=== PATIENT | female | born 1955 | race Caucasian/White ===

== ENCOUNTER 2018-01-18 09:18 | Emergency (ER) | payer MEDICAID, SELFPAY ==
[2018-01-18 09:22] VITALS: BP 154/78; PULSE 72; RESP 16; TEMP 36.9; O2SAT 98; BMI 55.2
--- NOTE | 2018-01-18 09:44 | ED.VISSUMM ---
- ER Visit Summary Date of Service: 01/18/18 Chief Complaint: [] Chronic left arm neck pain History of Present Illness: The patient is a 62 F [] of chronic left neck and arm pain she indicates she has been worked up extensively by the [facility] with imaging studies etc. she is told she is a pinched nerve involving her neck she is scheduled to see a neck specialist through [facility] in a pain management individual but that is not until mid January, she also has fibromyalgia bipolar disorder, she is taking Lyrica for the pain she is followed through [facility] she explained to them that her pain was not being well controlled by Lyrica and she was sent to the emergency department. She has had no change in her pain syndrome. She takes a finger and draws across her left neck down to the mid arm does not really radiate to the hand she has no loss of function on paresthesias no trauma and again no change in her chronic pain, her review of systems otherwise negative Physical Examination: [] Woman in no distress her vital signs are normal again she takes indicates location of the pain as above it stops at about the mid arm laterally her HEENT exam is unremarkable the neck is not tender her lungs are diminished the heart tones are distant the abdomen is very obese and soft nontender upper lower extremities unremarkable, left upper extremity she has normal pulse cap refill sensation she has full flexion-extension of all digits thumb function is normal wrist function elbow function shoulder function normal she has slight decreased forward elevation with the shoulder because of pain there is no instability deformity no trauma to the shoulder there is no neurologic or vascular deficits appreciated on physical exam Test Results: [] Emergency Department Course and Treatment: [] Long conversation with her we reviewed everything she assures me this is not new just Lyrica is not helping she has appointment scheduled for weeks from now and she cannot wait. At this time she will be treated with Toradol IM Tylenol 3 as rescue medicine but have explained her she must contact her primary care physicians and received pain management through those offices as the emergency department cannot assume her pain management based on current regulations she understands and will do so Treatment Plan: [] Disposition: [] Stable home Impression: [] Acute recurrent left arm,pain, cervical radiculopathy This note was generated with Revalesioation software. It may contain incorrect words, spelling, and punctuation that were not noted in review of the chart prior to signing ED Disposition - Plan for ED Patient: Chief Complaint: Other, Pain/Inj Referrals: Prince Gotti MD [Primary Care Provider] -
--- NOTE | 2018-01-18 09:47 | ED.DCSUM_ITS ---
- ER Visit Summary Date of Service: 01/18/18 Chief Complaint: [] Chronic left arm neck pain History of Present Illness: The patient is a 62 F [] of chronic left neck and arm pain she indicates she has been worked up extensively by the [facility] with imaging studies etc. she is told she is a pinched nerve involving her neck she is scheduled to see a neck specialist through [facility] in a pain management individual but that is not until mid January, she also has fibromyalgia bipolar disorder, she is taking Lyrica for the pain she is followed through [facility] she explained to them that her pain was not being well controlled by Lyrica and she was sent to the emergency department. She has had no change in her pain syndrome. She takes a finger and draws across her left neck down to the mid arm does not really radiate to the hand she has no loss of function on paresthesias no trauma and again no change in her chronic pain, her review of systems otherwise negative Physical Examination: [] Woman in no distress her vital signs are normal again she takes indicates location of the pain as above it stops at about the mid arm laterally her HEENT exam is unremarkable the neck is not tender her lungs are diminished the heart tones are distant the abdomen is very obese and soft nontender upper lower extremities unremarkable, left upper extremity she has normal pulse cap refill sensation she has full flexion-extension of all digits thumb function is normal wrist function elbow function shoulder function normal she has slight decreased forward elevation with the shoulder because of pain there is no instability deformity no trauma to the shoulder there is no neurologic or vascular deficits appreciated on physical exam Test Results: [] Emergency Department Course and Treatment: [] Long conversation with her we reviewed everything she assures me this is not new just Lyrica is not helping she has appointment scheduled for weeks from now and she cannot wait. At this time she will be treated with Toradol IM Tylenol 3 as rescue medicine but have explained her she must contact her primary care physicians and received pain management through those offices as the emergency department cannot assume her pain management based on current regulations she understands and will do so Treatment Plan: [] Disposition: [] Stable home Impression: [] Acute recurrent left arm,pain, cervical radiculopathy This note was generated with SpeakUpation software. It may contain incorrect words, spelling, and punctuation that were not noted in review of the chart prior to signing ED Disposition - Plan for ED Patient: Chief Complaint: Other, Pain/Inj Referrals: Prince Gotti MD [Primary Care Provider] -
--- NOTE | 2018-01-18 09:47 | ED.DEP ---
ED Disposition - Plan for ED Patient: Chief Complaint: Other, Pain/Inj Prescriptions: Acetaminophen/Codeine #3 [Tylenol#3] 1 tab PO Q6H PRN PRN #20 tab PRN Reason: Pain Referrals: Prince Gotti MD [Primary Care Provider] -
--- NOTE | 2018-01-18 09:49 | ED.DEP ---
ED Disposition - Plan for ED Patient: Chief Complaint: Other, Pain/Inj Instructions: ED Chronic Pain Management, ED Cervical Radiculopathy Prescriptions: Acetaminophen/Codeine #3 [Tylenol#3] 1 tab PO Q6H PRN PRN #20 tab PRN Reason: Pain Referrals: Prince Gotti MD [Primary Care Provider] -
[2018-01-18] MEDS: Ketorolac 60 MG/2 ML Vial IM (09:58)
[2018-01-18 10:32] VITALS: BP 147/91; PULSE 83; RESP 16; O2SAT 99
== END 2018-01-18 10:34 | disposition home or self-care (01) ==
LOC: ED 09:59
PROVIDERS: Emergency Provider Emergency Medicine; Family Provider Family Medicine; PCP Family Medicine
DX: M79.602 Pain in left arm (principal); M54.12 Radiculopathy, cervical region; M79.7 Fibromyalgia; F31.9 Bipolar disorder, unspecified; Z79.899 Other long term (current) drug therapy
CPT/HCPCS: 96372; 99282

== ENCOUNTER 2019-06-03 09:08 | Day surgery (SDC) | payer MEDICAID, SELFPAY ==
[2019-06-03 09:32] VITALS: BP 131/80; PULSE 85; RESP 16; TEMP 36.8; O2SAT 96; BMI 119.7
[2019-06-03] MEDS: Bupivacaine 0.25% 30 ML Vial (10:09)
[2019-06-03] MEDS: MethylPREDNISolone Acetate 80 MG/ML Vial (10:09)
--- NOTE | 2019-06-03 10:10 | RAD_ITS ---
PROCEDURE: Caudal block. DATE OF EXAMINATION: June 03, 2019 INDICATION: Female, 64 years old. Chronic back pain. FLUOROSCOPY TIME (if supplied): (0:12) minutes/seconds. 2 intraoperative images were obtained. Intraoperative images provided for caudal block. The spinal needle is seen along the posterior midportion of the sacrum. RAD/Fluor Guidance for Spine Inj IMPRESSION: Intraoperative imaging provided for caudal block. Electronically Signed: Peña Woodall, at 15:54 EDT , Service support ,
[2019-06-03 10:18] VITALS: BP 116/71; BP 131/80; PULSE 87; RESP 16; TEMP 36.2; O2SAT 97
[2019-06-03 10:20] VITALS: BP 116/71; BP 131/80; PULSE 85; RESP 16; O2SAT 97
[2019-06-03 10:25] VITALS: BP 125/68; BP 131/80; PULSE 85; RESP 16; O2SAT 95
[2019-06-03 10:26] LABS: Bedside Glucose 137 mg/dL (70-110)
[2019-06-03 10:27] VITALS: BP 120/67; BP 131/80; PULSE 84; RESP 16; TEMP 36.1; O2SAT 96
[2019-06-03 11:00] VITALS: BP 131/80
--- NOTE | 2019-06-03 17:36 | OP.PCM_ITS ---
Problem List (1) Degeneration of lumbar or lumbosacral intervertebral disc Status: Chronic (2) Radiculopathy of lumbosacral region Status: Chronic Report of Operation Date of Procedure: 06/03/19 Pre-Operative Diagnosis: Lumbosacral radiculopathy, lumbar degenerative disc disease, lumbar sacral spinal stenosis Post-Operative Diagnosis: Sacral radiculopathy, lumbar sacral degenerative disc disease, lumbosacral spinal stenosis Surgery/Procedure Performed:: Diagnostic/therapeutic caudal epidural steroid injection Description of Surgical Findings:: PROCEDURE: Diagnostic/therapeutic caudal epidural steroid injection PREOPERATIVE DIAGNOSIS: Lumbosacral radiculopathy, lumbosacral degenerative disc disease, lumbosacral spinal stenosis POSTOPERATIVE DIAGNOSIS: Lumbosacral radiculopathy, lumbosacral degenerative disc disease, lumbosacral spinal stenosis ANESTHESIA: MAC COMPLICATIONS: None BLOOD LOSS: Minimal PROCEDURE IN DETAIL: History and physical today was reviewed. Risks and benefits of the procedure were explained. The patient understood, agreed to our procedure, and informed consent was obtained. IV inserted per routine protocol. The patient was taken to the operating room, placed in a prone position with a pillow positioned underneath the abdomen. The lower back area was prepped and draped in a sterile fashion using iodine x3 under fluoroscopy guidance on the lateral view the caudal space was identified the skin and subcutaneous tissue and size approximately 3 cc of 1% lidocaine using a 25-gauge regular needle under direct visualization fluoroscopy using a 22-gauge 3-1/2 inch spinal needle the needle was advanced via the skin through the sacral hiatus tip of the needle passed through the sacrococcygeal ligament a dvanced approximately S4 area after negative aspiration for blood or CSF a total of 3 cc of contrast were injected to confirm correct placement of the needle as well as cephalad spread the spread was followed to approximately L5 area after negative aspiration for blood or CSF and confirmation AP as well as lateral view a total of 15 cc of preservative-free 0.125% Marcaine with 80 mg of Depo-Medrol were injected easily. The needles were then removed intact. The patient experienced no signs or symptoms intrathecal, intravascular injection. The patient experienced no paraesthesia. The procedure was completed without any apparent difficult, any complication. The patient appeared to tolerate well. ASSESSMENT AND PLAN: This is a 64-year-old female with lumbosacral radiculopathy, lumbosacral trip disc disease, lumbar sacral spinal stenosis status post diagnostic/therapeutic caudal epidural steroid injection. The patient will continue her current medications. The patient will follow in approximately 2 weeks for possible reevaluation.
== END 2019-06-03 11:08 | disposition home or self-care (01) ==
LOC: SDC 09:09 → AC 09:14
PROVIDERS: Family Provider Family Medicine; PCP Family Medicine; Referring Provider Anesthesiology Pain Medicine; Visit Provider Anesthesiology Pain Medicine
PROC: 3E0S3BZ Introduction of Anesthetic Agent into Epidural Space, Percutaneous Approach (ICD-10-PCS; CPT 62282; principal; 2019-06-03 10:05)
DX: M51.16 Intervertebral disc disorders with radiculopathy, lumbar region (principal); M48.061 Spinal stenosis, lumbar region without neurogenic claudication; I25.2 Old myocardial infarction; I10 Essential (primary) hypertension; J44.9 Chronic obstructive pulmonary disease, unspecified; E78.00 Pure hypercholesterolemia, unspecified; F41.9 Anxiety disorder, unspecified; F32.9 Major depressive disorder, single episode, unspecified; E05.00 Thyrotoxicosis with diffuse goiter without thyrotoxic crisis or storm; E11.40 Type 2 diabetes mellitus with diabetic neuropathy, unspecified; G47.33 Obstructive sleep apnea (adult) (pediatric); M79.7 Fibromyalgia; K21.9 Gastro-esophageal reflux disease without esophagitis; Z79.899 Other long term (current) drug therapy; Z79.82 Long term (current) use of aspirin; Z79.84 Long term (current) use of oral hypoglycemic drugs; Z86.718 Personal history of other venous thrombosis and embolism; Z87.891 Personal history of nicotine dependence; Z79.891 Long term (current) use of opiate analgesic
CPT/HCPCS: 62323; 64483; 77003; 82962; J7120; J3490

== ENCOUNTER 2019-07-15 07:57 | Day surgery (SDC) | payer MEDICAID, SELFPAY ==
[2019-07-15 08:23] VITALS: BP 117/66; PULSE 79; RESP 16; TEMP 36.5; O2SAT 98; BMI 54.3
[2019-07-15] MEDS: Lactated Ringers 1,000 ML 100 ML IV (08:31)
--- NOTE | 2019-07-15 09:00 | RAD_ITS ---
PROCEDURE: L3-L5 right lumbar transforaminal block. DATE OF EXAMINATION: July 15, 2019. INDICATION: Female, 64 years old. Back pain. FLUOROSCOPY TIME (if supplied): (0:28) minutes/seconds. 2 images were obtained. Intraoperative imaging provided for right L3 L5 transforaminal block. RAD/Lumbar Spine 2 or 3 Views IMPRESSION: Intraoperative imaging provided for right L3-L5 transforaminal block. Electronically Signed: Peña Woodall, at 15:37 EDT , Service support ,
[2019-07-15 09:05] LABS: Bedside Glucose 112 mg/dL (70-110)
[2019-07-15] MEDS: MethylPREDNISolone Acetate 80 MG/ML Vial (09:37)
[2019-07-15 09:47] VITALS: BP 117/66; BP 155/84; PULSE 80; RESP 16; TEMP 36.1; O2SAT 95
[2019-07-15 09:50] VITALS: BP 117/66; BP 142/95; PULSE 83; RESP 16; O2SAT 96
[2019-07-15 09:55] VITALS: BP 117/66; BP 130/81; PULSE 84; RESP 16; O2SAT 96
[2019-07-15 10:00] VITALS: BP 117/66; BP 126/82; PULSE 81; RESP 16; TEMP 36.1; O2SAT 95
[2019-07-15 10:49] VITALS: BP 117/66
--- NOTE | 2019-07-15 13:38 | PCM.OPRPT ---
Problem List (1) Degeneration of lumbar or lumbosacral intervertebral disc Status: Chronic (2) Radiculopathy of lumbosacral region Status: Chronic Report of Operation Date of Procedure: 07/15/19 Description of Surgical Findings:: PREOPERATIVE DIAGNOSES: 1. Lumbosacral radiculopathy. 2. Lumbosacral degenerative disk disease. 3. Lumbosacral spinal stenosis. POSTOPERATIVE DIAGNOSES: 1. Lumbosacral radiculopathy. 2. Lumbosacral degenerative disk disease. 3. Lumbosacral spinal stenosis. PROCEDURE PERFORMED: Right-sided lumbar transforaminal epidural steroid injection, L3-4 and L4-5. ANESTHESIA: MAC. BLOOD LOSS: Minimal. COMPLICATIONS: None. DESCRIPTION OF PROCEDURE: History and physical of today was reviewed. Risks and benefits of the procedure were explained. The patient understood and agreed to proceed. Informed consent was obtained. IV inserted per routine protocol. The patient was taken to the operating room and placed in the prone position with a pillow positioned underneath the abdomen. The left side of his lower back was prepped and draped in a sterile fashion using iodine x3. Under fluoroscopy guidance on oblique view, the L3 through L5 vertebral bodies were visualized. The skin and subcutaneous tissue was anesthetized with approximately 5 mL of 1% lidocaine using a 25-gauge regular needle. Under direct visualization with fluoroscopy at approximately 35-degree angle, starting on the right L3, ending on the right L5, using a 22-gauge 5-inch spinal needle, the needle was advanced via the skin. The tip of the needle was maneuvered and directed towards the inferior and medial gutter of the transverse process at the superiormost aspect of the neural foramen. Once the tip of the needle was at the vicinity of the foramen, after negative aspiration for blood or CSF, a total of 1 mL of contrast was injected in divided doses between both levels to confirm correct placement of the needle as well as medial spread. The confirmation was obtained on AP as well as lateral view. After repeated negative aspiration and confirmation on AP as well as lateral view, a total of 6 mL of preservative-free 0.25% Marcaine with 80 mg of Depo-Medrol was injected in divided doses between both levels. The needles were then removed intact. The patient experienced no sign or symptoms of intrathecal or intravascular injection. The patient experienced no paresthesia. The procedure was completed without any apparent difficulty or any complications. The patient appeared to tolerate it well. ASSESSMENT AND PLAN: This is a 64-year-old female with lumbosacral radiculopathy, lumbosacral degenerative disk disease, and lumbosacral spinal stenosis, status post right-sided lumbar transforaminal epidural steroid injection at L3-4 and L4-5. The patient will continue her current medications. The patient will follow up in approximately 2 weeks for reevaluation.
== END 2019-07-15 10:50 | disposition home or self-care (01) ==
LOC: SDC 07:58 → AC 08:01
PROVIDERS: Family Provider Family Medicine; PCP Family Medicine; Referring Provider Anesthesiology Pain Medicine; Visit Provider Anesthesiology Pain Medicine
PROC: 3E0S3BZ Introduction of Anesthetic Agent into Epidural Space, Percutaneous Approach (ICD-10-PCS; CPT 64483; principal; 2019-07-15 09:55)
DX: M51.17 Intervertebral disc disorders with radiculopathy, lumbosacral region (principal); M47.27 Other spondylosis with radiculopathy, lumbosacral region; M48.07 Spinal stenosis, lumbosacral region; E66.9 Obesity, unspecified; Z68.43 Body mass index [BMI] 50.0-59.9, adult; E05.00 Thyrotoxicosis with diffuse goiter without thyrotoxic crisis or storm; I10 Essential (primary) hypertension; I25.2 Old myocardial infarction; E11.40 Type 2 diabetes mellitus with diabetic neuropathy, unspecified; K21.9 Gastro-esophageal reflux disease without esophagitis; M79.7 Fibromyalgia; J44.9 Chronic obstructive pulmonary disease, unspecified; G43.909 Migraine, unspecified, not intractable, without status migrainosus; G47.33 Obstructive sleep apnea (adult) (pediatric); G25.81 Restless legs syndrome; F41.9 Anxiety disorder, unspecified; F32.9 Major depressive disorder, single episode, unspecified; M06.9 Rheumatoid arthritis, unspecified; Z78.0 Asymptomatic menopausal state; Z86.718 Personal history of other venous thrombosis and embolism; Z86.73 Personal history of transient ischemic attack (TIA), and cerebral infarction without residual deficits; Z87.11 Personal history of peptic ulcer disease; Z79.82 Long term (current) use of aspirin; Z79.891 Long term (current) use of opiate analgesic; Z79.899 Other long term (current) drug therapy; Z87.891 Personal history of nicotine dependence
CPT/HCPCS: 64483; 64484 ×2; 72100; 82962; J7120; J3490

== ENCOUNTER 2019-09-30 07:16 | Day surgery (SDC) | payer MEDICAID, SELFPAY ==
[2019-09-30] VITALS (7 sets, daily range): BP systolic 107–133; BP diastolic 67–89; PULSE 77–79; RESP 16; TEMP 36.2–36.6; O2SAT 94–97; BMI 53.1
[2019-09-30] MEDS: Lactated Ringers 1,000 ML 100 ML IV (08:00)
[2019-09-30 08:06] LABS: Bedside Glucose 129 mg/dL (70-110)
--- NOTE | 2019-09-30 08:11 | RAD_ITS ---
STUDY: X-RAY - LUMBAR SPINE REASON FOR EXAM: Female, 64 years old. Right L3-S1 facet joint injection. TECHNIQUE: 4 intraoperative view(s) of the lumbar spine were obtained. COMPARISON: None FINDINGS: Intraoperative fluoroscopic services provided for right L3-S1 facet joint injection. RAD/L/S Spine Min 4 Views IMPRESSION: Intraoperative fluoroscopic services were provided for right-sided L3-S1 facet joint injection. Electronically Signed: Peña Woodall, at 11:20 EST , Service support ,
[2019-09-30] MEDS: Bupivacaine 0.25% 30 ML Vial (08:17)
[2019-09-30] MEDS: MethylPREDNISolone Acetate 80 MG/ML Vial (08:17)
--- NOTE | 2019-09-30 08:58 | OP.PCM_ITS ---
Report of Operation Date of Procedure: 09/30/19 Description of Surgical Findings:: PROCEDURE: Right-sided lumbar facet steroid injection L3, L4, L5, S1 PREOPERATIVE DIAGNOSIS: Lumbosacral spondylosis, lumbosacral degenerative disc disease, and lumbar facet arthropathy POSTOPERATIVE DIAGNOSIS: Lumbosacral spondylosis, lumbosacral degenerative disc disease, and lumbar facet arthropathy ANESTHESIA: MAC COMPLICATIONS: None BLOOD LOSS: Minimal PROCEDURE IN DETAIL: History and physical today was reviewed. Risks and benefits of the procedure were explained. The patient understood, agreed to our procedure, and informed consent was obtained. IV inserted per routine protocol. The patient was taken to the operating room, placed in a prone position with a pillow positioned underneath the abdomen. The right side of his lower back was prepped and draped in a sterile fashion using iodine x3. Under fluoroscopy guidance, on AP view, L3 through S1 vertebral bodies were visualized. Skin and subcutaneous tissues were anesthetized with approximately 5 mL of 1% lidocaine using a 25-gauge regular needle. Under direct visualization with fluoroscopy at approximately 25-degree angle, starting on the right L3, ending on the right S1, passing through the L4-L5 using a 22-gauge 5-inch spinal needle, the needle was advanced via the skin. The tip of the needle was maneuvered and directed towards the superior and medial gutter of the transverse process at the vicinity of the medial branch. Once the tip of the needle was in contact with the bone, the needle pulled approximately 2 mm off the bone. After negative aspiration of blood with CSF and confirmation of AP as well as oblique view, a total of 8 mL of preservative-free 0.25% Marcaine with 80 mg of Depo- Medrol was injection in divided doses between those 4 levels. The needles were then removed intact. The patient experienced no signs or symptoms intrathecal, intravascular injection. The patient experienced no paraesthesia. The procedure was completed without any apparent difficult, any complication. The patient appeared to tolerate well. ASSESSMENT AND PLAN: This is a 64-year-old Female with Lumbosacral spondylosis, lumbosacral degenerative disc disease, and lumbar facet arthropathy, status post right-sided lumbar facet steroid injection L3 through S1. The patient will continue her current medications. The patient will follow in approximately 2 weeks for reevaluation.
== END 2019-09-30 09:23 | disposition home or self-care (01) ==
LOC: SDC 07:16 → AC 07:18
PROVIDERS: Family Provider Family Medicine; PCP Family Medicine; Referring Provider Anesthesiology Pain Medicine; Visit Provider Anesthesiology Pain Medicine
PROC: 3E0T3BZ Introduction of Anesthetic Agent into Peripheral Nerves and Plexi, Percutaneous Approach (ICD-10-PCS; CPT 64483; principal; 2019-09-30 07:55)
DX: M47.27 Other spondylosis with radiculopathy, lumbosacral region (principal); M51.17 Intervertebral disc disorders with radiculopathy, lumbosacral region; M46.96 Unspecified inflammatory spondylopathy, lumbar region; I10 Essential (primary) hypertension; J44.9 Chronic obstructive pulmonary disease, unspecified; G47.33 Obstructive sleep apnea (adult) (pediatric); G43.909 Migraine, unspecified, not intractable, without status migrainosus; G25.81 Restless legs syndrome; K21.9 Gastro-esophageal reflux disease without esophagitis; E78.00 Pure hypercholesterolemia, unspecified; E11.40 Type 2 diabetes mellitus with diabetic neuropathy, unspecified; F32.9 Major depressive disorder, single episode, unspecified; F41.9 Anxiety disorder, unspecified; M79.7 Fibromyalgia; M06.9 Rheumatoid arthritis, unspecified; E06.9 Thyroiditis, unspecified; I25.2 Old myocardial infarction; Z78.0 Asymptomatic menopausal state; Z86.73 Personal history of transient ischemic attack (TIA), and cerebral infarction without residual deficits; Z87.19 Personal history of other diseases of the digestive system; Z86.718 Personal history of other venous thrombosis and embolism; Z79.82 Long term (current) use of aspirin; Z79.84 Long term (current) use of oral hypoglycemic drugs; Z79.891 Long term (current) use of opiate analgesic; Z79.899 Other long term (current) drug therapy; Z87.891 Personal history of nicotine dependence
CPT/HCPCS: 01992; 64483; 64484 ×2; 72100; 72110; 82962; J7120

== ENCOUNTER → 2019-12-05 14:19 | Outpatient (CLI) | payer MEDICAID, SELFPAY ==
[2019-12-05 14:18] VITALS: BMI 53.1
[2019-12-05 14:40] LABS: Absolute Lymphocyte Count 2.05 X10^3/uL (0.83-4.51); Basophil# 0.05 X10^3/uL; Basophil% 0.7 % (0-1); Eosinophil# 0.17 X10^3/uL; Eosinophils% 2.5 % (0-5); Hematocrit 45.4 % (37-47); Hemoglobin 14.8 g/dL (12.0-15.0); Lymphocyte # 2.05 X10^3/ul (4.0); Lymphocyte % 30.2 % (19-41); Mean Corp Hgb Conc 32.6 g/dL (32-36); Mean Corpuscular Hgb 28.9 pg (27.0-32.0); Mean Corpuscular Volume 88.7 fL (81-99); Mean Platelet Vol. 9.5 fl (6.2-12.0); Monocyte# 0.51 X10^3/uL; Monocyte% 7.5 % (0-10); NRBC Flagged by Analyzer 0 % (0-5); Neutrophil # 3.97 X10^3/uL (2.7-7.7); Neutrophil % 58.7 % (47-70); Platelet Count 204 K/mm3 (150-450); RBC Distribution Width CV 13.1 % (11.6-14.6); RBC Distribution Width SD 42.6 fl (35.1-43.9); Red Blood Count 5.12 M/mm3 (4.2-5.4); White Blood Count 6.8 K/mm3 (4.4-11.0)
[2019-12-05 14:56] LABS: ALB/GLOB Ratio 0.9 RATIO (0.9-2.4); AST(SGOT) 30 U/L (15-37); Alanine Aminotransfer ALT/SGPT 49 U/L (13-56); Alkaline Phosphatase 70 U/L (45-117); Anion Gap 5 (5-15); BUN 11 mg/dL (7-18); BUN/Creat Ratio 13.7 RATIO (10-20); Calcium,Total 9.6 mg/dL (8.5-10.1); Chloride 104 mmol/L (98-107); EST Glomerular Filtration Rate 77 mL/min (>60); Est Glom Filt Rate - Afr Amer 93 mL/min (>60); Globulin 4.3 g/dL (2.2-4.2); Glucose 90 mg/dL (74-106); Lipase 120 U/L (73-393); Potassium 4.4 mmol/L (3.5-5.1); Protein, Total 8.3 g/dL (6.4-8.2); Sodium Level 136 mmol/L (136-145)
== END ==
PROVIDERS: PCP Family Medicine; Referring Provider Surgery; Visit Provider Surgery
DX: R10.11 Right upper quadrant pain (principal)
CPT/HCPCS: 36415; 80053; 83690; 85025

== ENCOUNTER 2019-12-20 08:08 | Day surgery (SDC) | payer MEDICAID, SELFPAY ==
[2019-12-05 14:18] VITALS: BMI 53.1
--- NOTE | 2019-12-09 11:25 | HP_ITS ---
Intake Vital Signs 12/05/19 BMI 53.1 12/05/19 Height 5 ft 4 in 12/05/19 Weight: 311 lb 12/05/19 Respiration 18 Intake Visit Reasons: Esophagogastroduodenoscopy [place] [employer] [employer] [facility] Required: No Is patient in pain?: Yes (right abdomen) Pain scale (1-10): 10 Allergies adhesive tape Allergy (Verified 09/30/19 07:35) Rash fluticasone [From Advair Diskus] Adverse Reaction (Verified 09/30/19 07:35) Other salmeterol [From Advair Diskus] Adverse Reaction (Verified 09/30/19 07:35) Other tetracycline Adverse Reaction (Verified 09/30/19 07:35) Upset Stomach Medications Albuterol Inhaler [Ventolin Hfa (SP)] 2 puff INHALATION Q4H PRN PRN 05/30/19 [History Confirmed 12/05/19] Amitriptyline HCl [Elavil] 25 mg PO QHS 05/30/19 [History Confirmed 09/30/19] Aspirin [Aspir-Low] 81 mg PO DAILY 05/30/19 [History Confirmed 12/05/19] Atorvastatin Calcium [Lipitor] 10 mg PO QHS 05/30/19 [History Confirmed 12/05/19] Baclofen 10 mg PO BID 05/30/19 [History Confirmed 12/05/19] Budesonide/Formoterol 160/4.5 [Symbicort 160/4.5 Mcg Inhaler (SP)] 2 puff INHALATION BID 05/30/19 [History Confirmed 12/05/19] Calcium (Elemental) [Os-Chandler 500] 500 mg PO DAILY 05/30/19 [History Confirmed 12/05/19] Cetirizine HCl 10 mg PO DAILY 05/30/19 [History Confirmed 12/05/19] Cholecalciferol (Vitamin D3) [Vitamin D3] 2,000 unit PO DAILY 05/30/19 [History Confirmed 12/05/19] Diltiazem HCl [Diltiazem ER] 180 mg PO DAILY 05/30/19 [History Confirmed 12/05/19] Furosemide [Lasix] 40 mg PO DAILY 05/30/19 [History Confirmed 12/05/19] Hydroxyzine HCl 50 mg PO TID 05/30/19 [History Confirmed 12/05/19] Levothyroxine Sodium 300 mcg PO DAILY 05/30/19 [History Confirmed 12/05/19] Lisinopril [Zestril] 5 mg PO DAILY 05/30/19 [History Confirmed 12/05/19] Meloxicam [Mobic] 15 mg PO DAILY 05/30/19 [History Confirmed 12/05/19] Metformin HCl [Glucophage] 500 mg PO BID 05/30/19 [History Confirmed 12/05/19] Montelukast [Singulair] 10 mg PO DAILY 05/30/19 [History Confirmed 12/05/19] Multivitamin [Daily Multiple Vitamin] 1 ea PO DAILY 05/30/19 [History Confirmed 12/05/19] Potassium Chloride [K-Tab ER] 20 meq PO DAILY 05/30/19 [History Confirmed 12/05/19] Topiramate [Topamax] 50 mg PO QHS 05/30/19 [History Confirmed 12/05/19] amitriptyline 25 mg tablet 25 mg PO DAILY 12/05/19 [History Confirmed 12/05/19] fluocinonide 0.05 % topical ointment 1 applic TOPICAL BID 12/05/19 [History Confirmed 12/05/19] ketoconazole 2 % shampoo 1 applic TOPICAL 2XW 12/05/19 [History Confirmed 12/05/19] omeprazole 20 mg capsule,delayed release 20 mg PO BID cap 12/05/19 [History Confirmed 12/05/19] pregabalin 150 mg capsule 150 mg PO DAILY 12/05/19 [History Confirmed 12/05/19] sucralfate 1 gram tablet 1 g PO QACHS #120 tab 12/05/19 [Rx Confirmed 12/05/19] [facility] Medical History Abdominal pain, other specified site (Acute) Acid reflux (Acute) Asthma (Acute) CVA (cerebral vascular accident) (Acute) DDD (degenerative disc disease) (Acute) Depression (Acute) Diabetes mellitus (Acute) Embolism (Acute) Fibroids (Acute) Fibromyalgia (Acute) Hypothyroid (Acute) Migraines (Acute) BEBETO (obstructive sleep apnea) (Acute) Peptic ulcer (Acute) Severe nausea (Acute) HTN (hypertension) (Chronic) Surgical History H/O section (Acute) S/P exploratory laparotomy (Acute) S/P eye surgery (Acute) S/P hysterectomy (Acute) S/P laparoscopic cholecystectomy (Acute) Social History (Updated 12/09/19 @ 11:[address] Robert Chaidez MD) Smoking Status: Former smoker alcohol intake: current alcohol intake frequency: holidays/special occasions only HPI HPI HPI: LILLY PICKARD, is a 64 F who presents to the office today for HPI HPI Surgical H&P: Yes HPI: LILLY PICKARD is a 64 F who presents to the office today for Multiple complaints. The patient reports she is just in abdominal pain all the time. She is this is especially prominent on the right side. She says that it was worse last week with bloating. She has been on omeprazole for years. ROS General General: Yes fatigue; no weight change HEENT HEENT: Yes difficulty swallowing and swollen glands Endo Endocrine: Yes thyroid disease and diabetes mellitus Musc Musculoskeletal: Yes back problems, arthritis and rheumatoid arthritis Cardio Cardiovascular: Yes high blood pressure and heart attack; no murmur, pacemaker, heart disease, atrial fibrillation, heart stent, palpitations, shortness of breat with exertion or chest pain Psych Psychiatric: Yes depression and anxiety Resp Respiratory: Yes shortness of breath, Yes sleep apnea, No cough, Yes COPD, Yes asthma, No emphysema, No wheezing Gastro Gastrointestinal: Yes abdominal pain, Yes nausea or vomiting, No diarrhea, No constipation, No blood in stool, Yes acid reflux, No hemorrhoids, Yes ulcers, Yes gallbladder problem, No black,tarry stools Jonny Hematologic: Yes blood thinners Exam Const General: cooperative Orientation: alert, oriented x3 Resp Effort & Inspection: normal respiratory effort Auscultation: clear to auscultation bilaterally Cardio Rate: regular rate Rhythm: regular rhythm Heart Sounds: no murmurs GI Inspection: non-distended Palpation: soft, tender Other: Patient is having tenderness on the right side of her abdomen Assessment & Plan Problems 1. Right lateral abdominal pain R10.9 2. Nausea R11.0 Plan The patient has been experiencing nausea and right-sided abdominal pain as well as bloating. I ordered labs to make sure that she was not having any biliary obstruction as she has had a cholecystectomy in the past. Her labs were normal. I have also started her on Carafate to supplement her omeprazole and I will perform an EGD and colonoscopy. I explained endoscopy in detail to the patient. I explained the risks including but not limited to stroke or heart attack with anesthesia, perforation of the GI tract, bleeding, infection. I explained that any of these could necessitate further emergency surgery. The patient understands and all questions were answered sufficiently. The patient wishes to proceed with procedure. Robert Chaidez MD Pager: [facility] [address] [place] [address], [address] [place] [address] Office: Orders Orders: Colonoscopy 12/05/19 EGD 12/05/19 K21.9, R10.9 Comprehensive Metabolic Profil 12/05/19 R10.11 Lipase 12/05/19 R10.11 CBC W/Diff, Automated 12/05/19 R10.11 Medications New: sucralfate (Carafate) 1 g PO QACHS 120 tabs 0RF Coding Level of Care Code Off vis,new,level 3 Diagnoses Right lateral abdominal pain R10.9 Nausea R11.0 12/09/19 1125 <Electronically signed by Robert stahl MD> Date _ Robert Chaidez MD I have re-examined the patient. There are no clinical changes since date of exam.
[2019-12-20 08:31] VITALS: BP 130/73; PULSE 79; RESP 17; TEMP 36.6; O2SAT 98; BMI 50.1
[2019-12-20 08:31] LABS: Bedside Glucose 120 mg/dL (70-110)
[2019-12-20] MEDS: Lactated Ringers 1,000 ML 100 ML IV (08:46)
--- NOTE | 2019-12-20 10:00 | OP.EGD_ITS ---
Patient Name: Sally Márquez Procedure Date: 12/20/2019 9:24 AM Date of : 1955 Age: 64 Procedure: Upper GI endoscopy Indications: Abdominal pain in the right upper quadrant Providers: Robert Chaidez MD Referring MD: Prince Gotti Medicines: Monitored Anesthesia Care Patient Profile: This is a 64 year old female. Refer to note in patient chart for documentation of history and physical. Complications: No immediate complications. Estimated blood loss: None. Procedure: Pre-Anesthesia Assessment: - Prior to the procedure, a History and Physical was performed, and patient medications and allergies were reviewed. The patient's tolerance of previous anesthesia was also reviewed. The risks and benefits of the procedure and the sedation options and risks were discussed with the patient. All questions were answered, and informed consent was obtained. Prior Anticoagulants: The patient has taken no previous anticoagulant or antiplatelet agents. After reviewing the risks and benefits, the patient was deemed in satisfactory condition to undergo the procedure. After obtaining informed consent, the endoscope was passed under direct vision. Throughout the procedure, the patient's blood pressure, pulse, and oxygen saturations were monitored continuously. The gastroscope was introduced through the mouth, and advanced to the third part of duodenum. The upper GI endoscopy was accomplished without difficulty. The patient tolerated the procedure well. Scope In: 9:31:11 AM Scope Out: 9:33:19 AM Total Procedure Duration Time 0 hours 2 minutes 8 seconds Findings: The esophagus was normal. The stomach was normal. There was bile in the stomach indicating bile reflux. The examined duodenum was normal. Impression: - Normal esophagus. - Normal stomach. Bile Reflux. - Normal examined duodenum. - No specimens collected. Recommendation: - Discharge patient to home. - Resume previous diet. - Continue present medications. Procedure Code(s): --- Professional --- 74155, Esophagogastroduodenoscopy, flexible, transoral; diagnostic, including collection of specimen(s) by brushing or washing, when performed (separate procedure) Diagnosis Code(s): --- Professional --- R10.11, Right upper quadrant pain CPT copyright 2017 [employer]. All rights reserved. The codes documented in this report are preliminary and upon white goods appliance tech review may be revised to meet current compliance requirements. Robert Chaidez MD 12/20/2019 9:59:46 AM This report has been signed electronically. Number of Addenda: 0 Note Initiated On: 12/20/2019 9:24 AM
--- NOTE | 2019-12-20 10:00 | OP.CCLET_ITS ---
12/20/2019 Prince Gotti Re : Upper GI endoscopy procedure for Sally Monzon Ana María This procedure was performed on Friday, December 20, 2019. My impressions and recommendations are as follows: Impressions : - Normal esophagus. - Normal stomach. Bile Reflux. - Normal examined duodenum. - No specimens collected. Recommendations : - Discharge patient to home. - Resume previous diet. - Continue present medications. My findings are described in the full procedure note, which is enclosed. If I can be of further assistance, please feel free to contact me at Doctor phone number(s): , Work: . Sincerely, Robert Chaidez MD 12/20/2019 9:59:46 AM This report has been signed electronically.
[2019-12-20 10:01] VITALS: BP 127/76; BP 130/73; PULSE 72; RESP 16; TEMP 36.3; O2SAT 96
--- NOTE | 2019-12-20 10:03 | OP.COLON_ITS ---
Patient Name: Sally Márquez Procedure Date: 12/20/2019 9:34 AM Date of : 1955 Age: 64 Procedure: Colonoscopy Indications: Abdominal pain in the right lower quadrant, Abdominal pain in the right upper quadrant Providers: Robert Chaidez MD Referring MD: Prince Gotti Medicines: Monitored Anesthesia Care Patient Profile: This is a 64 year old female. Refer to note in patient chart for documentation of history and physical. Last Colonoscopy: date unknown. Complications: No immediate complications. Procedure: Pre-Anesthesia Assessment: - Prior to the procedure, a History and Physical was performed, and patient medications and allergies were reviewed. The patient's tolerance of previous anesthesia was also reviewed. The risks and benefits of the procedure and the sedation options and risks were discussed with the patient. All questions were answered, and informed consent was obtained. Prior Anticoagulants: The patient has taken no previous anticoagulant or antiplatelet agents. After reviewing the risks and benefits, the patient was deemed in satisfactory condition to undergo the procedure. After I obtained informed consent, the scope was passed under direct vision. Throughout the procedure, the patient's blood pressure, pulse, and oxygen saturations were monitored continuously. The Colonoscope was introduced through the anus and advanced to the cecum, identified by appendiceal orifice and ileocecal valve. The colonoscopy was performed without difficulty. The patient tolerated the procedure well. The quality of the bowel preparation was good. Scope In: 9:36:26 AM Scope Withdrawal Time 0 hours 6 minutes 1 second Scope Out: 9:56:20 AM Total Procedure Duration Time 0 hours 19 minutes 54 seconds Findings: The entire examined colon appeared normal on direct and retroflexion views. Many small and large-mouthed diverticula were found in the sigmoid colon and descending colon. Impression: - The entire examined colon is normal on direct and retroflexion views. - Diverticulosis in the sigmoid colon and in the descending colon. - No specimens collected. Recommendation: - Discharge patient to home. - Resume previous diet. - Continue present medications. - Resume aspirin at prior dose today. - Repeat colonoscopy in 10 years for screening purposes. Procedure Code(s): --- Professional --- 29092, Colonoscopy, flexible; diagnostic, including collection of specimen(s) by brushing or washing, when performed (separate procedure) Diagnosis Code(s): --- Professional --- R10.31, Right lower quadrant pain R10.11, Right upper quadrant pain K57.30, Diverticulosis of large intestine without perforation or abscess without bleeding CPT copyright 2017 [employer]. All rights reserved. The codes documented in this report are preliminary and upon abrasive sawyer review may be revised to meet current compliance requirements. Robert Chaidez MD 12/20/2019 10:03:02 AM This report has been signed electronically. Number of Addenda: 0 Note Initiated On: 12/20/2019 9:34 AM
--- NOTE | 2019-12-20 10:03 | OP.CCLET_ITS ---
12/20/2019 Prince Gotti Re : Colonoscopy procedure for Sally Monzon Ana María This procedure was performed on Friday, December 20, 2019. My impressions and recommendations are as follows: Impressions : - The entire examined colon is normal on direct and retroflexion views. - Diverticulosis in the sigmoid colon and in the descending colon. - No specimens collected. Recommendations : - Discharge patient to home. - Resume previous diet. - Continue present medications. - Resume aspirin at prior dose today. - Repeat colonoscopy in 10 years for screening purposes. My findings are described in the full procedure note, which is enclosed. If I can be of further assistance, please feel free to contact me at Doctor phone number(s): , Work: . Sincerely, Robert Chaidez MD 12/20/2019 10:03:02 AM This report has been signed electronically.
[2019-12-20 10:05] VITALS: BP 128/83; BP 130/73; PULSE 69; RESP 16; O2SAT 97
[2019-12-20 10:10] VITALS: BP 130/73; BP 131/83; PULSE 73; RESP 16; O2SAT 97
[2019-12-20 10:16] VITALS: BP 130/73; BP 138/81; PULSE 70; RESP 16; TEMP 36.3; O2SAT 97
[2019-12-20 10:42] VITALS: BP 130/73
== END 2019-12-20 10:44 | disposition home or self-care (01) ==
LOC: EN 08:09 → AC 08:10
PROVIDERS: PCP Family Medicine; Referring Provider Family Medicine; Visit Provider Surgery
PROC: 0DJD8ZZ Inspection of Lower Intestinal Tract, Via Natural or Artificial Opening Endoscopic (ICD-10-PCS; CPT 45378; principal; 2019-12-20 09:25)
DX: R10.11 Right upper quadrant pain (principal); R10.31 Right lower quadrant pain; K57.30 Diverticulosis of large intestine without perforation or abscess without bleeding; K21.9 Gastro-esophageal reflux disease without esophagitis; J44.9 Chronic obstructive pulmonary disease, unspecified; F32.9 Major depressive disorder, single episode, unspecified; M79.7 Fibromyalgia; E03.9 Hypothyroidism, unspecified; G43.909 Migraine, unspecified, not intractable, without status migrainosus; G47.33 Obstructive sleep apnea (adult) (pediatric); I10 Essential (primary) hypertension; E11.9 Type 2 diabetes mellitus without complications; F41.9 Anxiety disorder, unspecified; M06.9 Rheumatoid arthritis, unspecified; I25.2 Old myocardial infarction; G25.81 Restless legs syndrome; E78.00 Pure hypercholesterolemia, unspecified; Z78.0 Asymptomatic menopausal state; Z86.73 Personal history of transient ischemic attack (TIA), and cerebral infarction without residual deficits; Z87.11 Personal history of peptic ulcer disease; Z86.718 Personal history of other venous thrombosis and embolism; Z90.49 Acquired absence of other specified parts of digestive tract; Z79.82 Long term (current) use of aspirin; Z79.84 Long term (current) use of oral hypoglycemic drugs; Z79.899 Other long term (current) drug therapy; Z87.891 Personal history of nicotine dependence
CPT/HCPCS: 43235; 45378; 82962; J7120; J2405

== ENCOUNTER 2021-02-08 11:58 | Emergency (ER) | payer MEDICAID, SELFPAY ==
[2021-02-08 11:58] VITALS: BP 145/76; PULSE 74; RESP 18; TEMP 36.9; O2SAT 97; BMI 54.9
--- NOTE | 2021-02-08 14:12 | ED.DEP ---
ED Disposition - Plan for ED Patient: Instructions: ED Knee Sprain Prescriptions: Oxycodone HCl/Acetaminophen [Percocet 5/325] 1 tablet PO Q6H PRN PRN 3 Days #12 tab PRN Reason: Pain Prescription Printed Referrals: Prince Gotti MD [Primary Care Provider] - Ashutosh Brennan DO [STAFF PHYSICIAN] - Matt Melo MD [STAFF PHYSICIAN] -
--- NOTE | 2021-02-08 14:25 | ED.VISSUMM ---
- ER Visit Summary Date of Service: 02/08/21 Chief Complaint: Left knee pain History of Present Illness: The patient is a 65 F presenting with left knee pain. Patient states she has had issues with her left knee. She states she has been told that her knee is [id number]. She states she is awaiting insurance approval to receive injections which will provide a cushion between the bones. She denies recent injury. She has been taking ibuprofen at home. She denies fever or other complaints. Physical Examination: Vitals are stable. Patient is afebrile. Alert no acute distress. HEENT exam is unremarkable. Neck is supple. Lungs are clear and equal bilaterally. Heart is regular rate and rhythm. Extremities left anterior knee tenderness with active full range of motion. No erythema or warmth. Normal distal pulses. Skin is warm and dry. Remainder of exam is unremarkable. Emergency Department Course and Treatment: OARRS report was reviewed. Patient is advised we cannot provide long-term chronic pain medication in the ED. She will be given short course of Percocet. She was advised to follow-up with her primary care physician and orthopedics as needed. Advised return to ED for worsening complaints. Disposition: Discharge home Impression: Left knee pain This note was generated with [employer] dictation software. It may contain incorrect words, spelling, and punctuation that were not noted in review of the chart prior to signing ED Disposition - Plan for ED Patient: Instructions: ED Knee Sprain Prescriptions: Oxycodone HCl/Acetaminophen [Percocet 5/325] 1 tablet PO Q6H PRN PRN 3 Days #12 tab PRN Reason: Pain Prescription Printed Referrals: Prince Gotti MD [Primary Care Provider] - Ashutosh Brennan DO [STAFF PHYSICIAN] - Matt Melo MD [STAFF PHYSICIAN] -
[2021-02-08] MEDS: oxyCODONE 5 MG Tablet PO (14:26)
== END 2021-02-08 14:39 | disposition home or self-care (01) ==
LOC: ED 14:26
PROVIDERS: Emergency Provider Emergency Medicine; PCP Family Medicine
DX: M25.562 Pain in left knee (principal); I10 Essential (primary) hypertension; E11.9 Type 2 diabetes mellitus without complications; J45.909 Unspecified asthma, uncomplicated; Z86.73 Personal history of transient ischemic attack (TIA), and cerebral infarction without residual deficits; Z79.84 Long term (current) use of oral hypoglycemic drugs; Z79.82 Long term (current) use of aspirin; Z79.899 Other long term (current) drug therapy
CPT/HCPCS: 99283

== ENCOUNTER 2021-07-12 13:07 | Outpatient (RCR) | payer MEDICAID, SELFPAY | END 2021-07-29 23:59 | LOC: NS 13:07 | PROVIDERS: PCP Family Medicine; Visit Provider Orthopaedic Surgery | DX: E66.9 Obesity, unspecified (principal); Z68.43 Body mass index [BMI] 50.0-59.9, adult | CPT/HCPCS: 97802 ==

== ENCOUNTER → 2021-07-27 16:04 | Outpatient (CLI) | payer MEDICAID, SELFPAY ==
[2021-07-27 18:41] LABS: Amphetamine Urine VISTA NEGATIVE (<1000 ng/mL); Barbiturate Urine VISTA NEGATIVE (< 200 ng/mL); Benzodiazepine Urine VISTA NEGATIVE (< 200 ng/mL); Cocaine Urine VISTA NEGATIVE (< 300 ng/mL); Ecstacy Urine VISTA NEGATIVE (< 500 ng/mL); Methadone Urine VISTA NEGATIVE (< 300 ng/mL); PCP Urine VISTA NEGATIVE (< 25 ng/mL); THC Urine VISTA NEGATIVE (< 50 ng/mL); Vista UDS pH Range 4
== END ==
PROVIDERS: PCP Family Medicine; Referring Provider Anesthesiology Pain Medicine; Visit Provider Anesthesiology Pain Medicine
DX: F11.20 Opioid dependence, uncomplicated (principal)
CPT/HCPCS: 80307

== ENCOUNTER 2021-08-02 12:56 | Outpatient (RCR) | payer MEDICAID, SELFPAY ==
[2021-07-30 00:05] VITALS: BMI 54.9
== END 2021-08-29 23:59 ==
LOC: NS 12:56
PROVIDERS: PCP Family Medicine; Visit Provider Orthopaedic Surgery
DX: E66.9 Obesity, unspecified (principal); Z68.43 Body mass index [BMI] 50.0-59.9, adult
CPT/HCPCS: 97802

== ENCOUNTER 2021-12-23 12:03 | Outpatient (RCR) | payer MEDICAID, SELFPAY ==
[2021-08-30 00:07] VITALS: BMI 54.9
== END 2021-12-27 23:59 ==
LOC: NS 12:03
PROVIDERS: PCP Family Medicine; Referring Provider Physician Assistant; Visit Provider Physician Assistant
DX: Z71.3 Dietary counseling and surveillance (principal); Z68.43 Body mass index [BMI] 50.0-59.9, adult; E66.01 Morbid (severe) obesity due to excess calories
CPT/HCPCS: 97113; 97530; 97802

== ENCOUNTER 2022-01-24 11:34 | Outpatient (RCR) | payer MEDICAID, SELFPAY ==
[2021-12-28 00:07] VITALS: BMI 54.9
== END 2022-01-27 23:59 ==
LOC: NS 11:34
PROVIDERS: PCP Family Medicine; Referring Provider Physician Assistant; Visit Provider Physician Assistant
DX: Z71.3 Dietary counseling and surveillance; E66.01 Morbid (severe) obesity due to excess calories; Z68.43 Body mass index [BMI] 50.0-59.9, adult
CPT/HCPCS: 97803

== ENCOUNTER 2022-01-25 10:00 | Outpatient (RCR) | payer MEDICAID, SELFPAY ==
--- NOTE | 2021-12-01 14:47 | HP.PTEVAL ---
Patient's Visit Information LILLY PICKARD is a 66 year old F referred to Physical Therapy by LUCIO Bentley with a diagnosis of Knee OA. Date of Evaluation: 12/01/21 Physical Therapist: Ben Gibbons, ROBSONT, OCS, CSCS - Visit Plan Frequency: 3x /Week Duration: 4-6 Weeks Plan: 3x/week for 4 weeks for pool based... 1. LE strength. quaad and HS stretches. calorie burning and core strength. Emphasize teaching with pics for I community pool program. - Subjective L leg hurts. in the knee. Daily all the time. It has hurt for a few years. Bad pain last October insidiously. Woke up with bad pain and not sure why. 10/10 daily when she wakes up. Loosens up a little bit with hanging to 6/10 and then worse with WB.Pain is anterior distal medial knee. Worse with WB. Worse with palpation. Seen doctor Jessica last March who is giving injections and they did not help. Steroids did not help. Sent to Dr. Carranza who gave brace which helps and sent to therapy. On prednisone which helped at first but just took last one. No exercises for knee but x ray showed bone on bone. needs to lose 40# to have TKA. Lives alone without steps. Using cane to get around much of time. Fell one time rushing to bathroom and leg gave out. Was not using cane at the time. Dresses and bath is fine, putting socks on R is difficult. Sent for pool therapy. Has had it previously but only 1 or two times and painful. Wiling to learn exercises in water, then she can go to pool in [place]. - Pain L knee Pain Intensity (Out of 10): 6 Pain Intensity Range: 5, 10 - Objective Walks I with cane L antalgia slow but I., Transfers I on own slowly needs to use arms. dons and doffs brace I but it slides down as she is walking. Will get another one from [facility] sometime soon. AROM B knees 0-125 but hesitant end range of L knee ext adn flexion, avoids knee extension until cued. knee strength 3+ L and 4- R, some L pain. Hip AROM WFL except extension which is to neutral B only. HS and quad max tight. reflexes 2/3 patella leanne chilles B. Sensation WNL to gross light touch. - ant drawer, L + bounce home, + patellar grind.L - Balance/Special Test Scores Lower Extremity Functional Score: 23 - Goals Goal 1:: Pain 0-3/10 at allt imes in knee and 70% better. Goal Time Frame: 2-4 Weeks Goal 2:: I appropriate pool ex for calorie burning and LE strength Goal Time Frame: 4-6 Weeks - Rehabilitation Potential Physical Therapy Diagnosis: Knee pain from degeneration Rehabilitation Potential: Fair - Anticipated Interventions Patient/Client Instruction: Educate patient on: Condition For the Purpose of:: To decrease pain, To improve muscle performance and motor function Therapeutic Exercise to Include: Strength training, Endurance training, Postural training, Flexibilty training, In an aquatic setting For the Purpose of:: To decrease pain, To improve muscle performance and motor function Thank you for the opportunity to evaluate your patient. For Medicare and Medicare HMO plans, please review the plan of care and approve it. It will need to be FAXED BACK to us at [phone] for Medicare purposes. For Medicare only, by signing this I certify the plan of care. Please let me know if there are questions or concerns regarding this plan of care. Physician Signature: Date:
--- NOTE | 2021-12-29 11:58 | HP.PTREVAL ---
LUCIO Bentley, It has been my pleasure to treat LILLY PICKARD over the last 10 visits for Knee OA. Please see the progress note below for an update on the physical therapy plan of care! Subjective: PATIENT REPORTS SHE SEEMS TO BE WALKING BETTER BUT NOT GOOD SHE WOULD LIKE. USES CANE OFF AND ON AND ESPECIALLY IN THE MORNINGS TO HELP HER BALANCE AND GET THE PRESSURE OFF HER L LEG. USING SAME KNEE BRACE - DID NOT GET A NEW ONE. PUTS IN ON UP HIGHER AND TIGHTENS IT UP FREQUENTLY. PATIENT REPORTS SHE IS NOT GOING TO JOIN A GYM IN [place] AT THIS TIME DUE TO COST. HAS A HOME RECUMBENT BIKE AND TREADMILL AND WOULD LIKE A HOME PROGRAM WHEN SHE IS DONE WITH AQUATIC THERAPY. Objective/Function: PATIENT WAS SEEN TODAY FOR RE-ASSESSMENT OF PROGRESS TOWARD THE SET PT GOALS AND THE NEED FOR FURTHER PHYSICAL THERAPY VS READINESS FOR DISCHARGE. PATIENT IS A GOOD CANDIDATE TO CONTINUE AQUATIC THERAPY BASED ON PROGRESS MADE AND ROOM FOR FURTHER IMPROVEMENT. PATIENT IS AGREEABLE. UPON DISCUSSION IT WAS REVEALED THAT A MEMBERSHIP FOR [employer] POOL PROGRAM IN [place] IS MORE EXPENSIVE THAN [employer] THEREFORE SHE IS GOING TO CONSIDER A MEMBERSHIP HERE POST PT. IN THE MEAN TIME SHE IS ALSO A GOOD CANDIDATE TO TRY LAND PT FOR HOME EX PROGRAM INSTRUCTION TO ASSESS HER TOLERANCE AND THE POSSIBLE BENEFITS OF A HEP VS POOL PROGRAM POST PT. UPON EXAM TODAY: PATIENT AMBULATES INDEP'LY INTO PT WITH DECREASED CADANCE, DECREASED TEZ STRIDE LENGTH AND NO ASSISTIVE DEVICE OR LOB. GAIT AND TRANSFERS ARE SLOW AND GUARDED. SHE IS WEARING A BRACE ON HER LEFT KNEE AND SHE WAS INSTRUCTED IN DONING BRACE WITH LEG UP ON TREATMENT TABEL VS SITTING IN CHAIR IN HOPES OF GETTING BETTER FIT. PATIENT IS GOING TO TRY THIS FOR AWHILE AT HOME TO SEE IF SHE GETTS BETTER RESULT. SHE CONTINUES TO HAVE TEZ KNEE WEAKNESS: L 3+/5, R 4-/5. TEZ KNEE AROM IN SUPINE WITH A HEEL SLIDE IS 125 DEG WHICH IS THE SAME AT INITIAL EVAL. PATIENT IS HOWEVER REPORTING LESS PAIN AND IS TOLERATING PROGRESSIVE RESISTIVE EX IN THE POOL AND WANTS TO CONTINUE PT IF POSSIBLE. Plan Plan: 3x/week for 4 weeks for pool based 2x's/wk... 1. LE strength. quaad and HS stretches. calorie burning and core strength. Emphasize teaching with pics for I community pool program. Land PT 1x/week for recumbent bike, treadmill and HEP instruction as tolerated. Patient is agreeable. Balance/Gait/Functional tests - Balance/Special Test Scores Lower Extremity Functional Score: 27 Goals Goal 1:: Pain 0-3/10 at allt imes in knee and 70% better. Goal Time Frame: 2-4 Weeks Goal Progress: Progressing Goal 2:: I appropriate pool ex for calorie burning and LE strength Goal Time Frame: 4-6 Weeks Goal Progress: Progressing Anticipated Interventions Patient/Client Instruction: Educate patient on: Condition For the Purpose of:: To decrease pain, To improve muscle performance and motor function Therapeutic Exercise to Include: Strength training, Endurance training, Postural training, Flexibilty training, In an aquatic setting For the Purpose of:: To decrease pain, To improve muscle performance and motor function Please do not hesitate to contact me at [phone] by phone or if you have questions or concerns regarding this new plan of care! Sincerely, Shena Freeman, PT, Cert MDT
--- NOTE | 2022-01-25 10:33 | HP.PTDCSUM ---
It has been my pleasure to treat LILLY PICKARD referred by LUCIO Bentley, with the diagnosis of Knee OA for a total of 20 visit(s). Discharge Date: 01/25/22 Please see the following information for a summary of their discharge status. Subjective: Better. Using TENS on knee with electrodes above and below knee and was painfree the next morning nearly. Barely has any pain at all now in knee. Wearing it often on leg. Feels like she is walking almost normal. Got a new cane and it helps with balanced. Pool is treating her well. Getting used to her land and pool workout. Back and knee are much better. Getting up and moving around and outside is happening more often. Pt wants to go to [employer] and try herself. L knee Pain Intensity (Out of 10): 0 RLE Pain Intensity (Out of 10): 5 Lumbar Spine Pain Intensity (Out of 10): 4 % Improvement: 90 Objective/Function: 0-100 AROM R knee, 115 L knee. Walks well with cane today without antalgia. Steps with L only and needs rail, R is painful Goal 1:: Pain 0-3/10 at allt imes in knee and 70% better. Goal Progress: Goal Met Goal 2:: I appropriate pool ex for calorie burning and LE strength Goal Progress: Goal Met Plan: d/c to HEP and pool/gym ex Discharge Comments: Pt to call doctor if pain returns. If there are questions or concerns regarding this patient's physical therapy, please feel free to call me at [phone]. Thank you for the referral of this patient. Sincerely, Ben Gibbons, DPT, OCS, CSCS Balance/Gait/Functional tests - Balance/Special Test Scores Lower Extremity Functional Score: 34
== END 2022-01-25 10:39 | disposition home or self-care (01) ==
LOC: PT 10:00
PROVIDERS: PCP Family Medicine; Referring Provider Physician Assistant; Visit Provider Physician Assistant
DX: M17.0 Bilateral primary osteoarthritis of knee (principal); Z71.3 Dietary counseling and surveillance; E66.01 Morbid (severe) obesity due to excess calories; Z68.43 Body mass index [BMI] 50.0-59.9, adult; F11.20 Opioid dependence, uncomplicated
CPT/HCPCS: 80307; 97110; 97113; 97161; 97164; 97530; 97802; 97803

== ENCOUNTER 2022-01-25 13:07 | Outpatient (CLI) | payer MEDICAID, SELFPAY ==
[2022-01-25 13:45] LABS: Amphetamine Urine VISTA NEGATIVE (<1000 ng/mL); Barbiturate Urine VISTA NEGATIVE (< 200 ng/mL); Benzodiazepine Urine VISTA NEGATIVE (< 200 ng/mL); Cocaine Urine VISTA NEGATIVE (< 300 ng/mL); Ecstacy Urine VISTA NEGATIVE (< 500 ng/mL); Methadone Urine VISTA NEGATIVE (< 300 ng/mL); PCP Urine VISTA NEGATIVE (< 25 ng/mL); THC Urine VISTA NEGATIVE (< 50 ng/mL); Vista UDS pH Range 6
== END 2022-01-25 23:59 | disposition home or self-care (01) ==
PROVIDERS: PCP Family Medicine; Referring Provider Anesthesiology Pain Medicine; Visit Provider Anesthesiology Pain Medicine
DX: F11.20 Opioid dependence, uncomplicated (principal)
CPT/HCPCS: 80307

== ENCOUNTER 2022-03-01 11:24 | Outpatient (RCR) | payer MEDICARE, MEDICAID, SELFPAY ==
[2022-01-28 00:13] VITALS: BMI 54.9
== END 2022-03-29 23:59 ==
LOC: NS 11:24
PROVIDERS: PCP Family Medicine; Referring Provider Physician Assistant; Visit Provider Physician Assistant
DX: Z68.43 Body mass index [BMI] 50.0-59.9, adult; Z71.3 Dietary counseling and surveillance; E66.01 Morbid (severe) obesity due to excess calories
CPT/HCPCS: 97803

== ENCOUNTER 2022-04-27 11:30 | Outpatient (RCR) | payer MEDICARE, MEDICAID, SELFPAY ==
[2022-03-30 00:09] VITALS: BMI 54.9
== END 2022-04-28 23:59 ==
LOC: NS 11:30
PROVIDERS: PCP Family Medicine; Referring Provider Physician Assistant; Visit Provider Physician Assistant
DX: Z71.3 Dietary counseling and surveillance (principal); E66.01 Morbid (severe) obesity due to excess calories; Z68.43 Body mass index [BMI] 50.0-59.9, adult
CPT/HCPCS: 97803

== ENCOUNTER 2022-05-17 10:48 | Outpatient (RCR) | payer MEDICARE, MEDICAID, SELFPAY ==
[2022-04-29 00:12] VITALS: BMI 54.9
== END 2022-05-29 23:59 ==
LOC: NS 10:48
PROVIDERS: PCP Family Medicine; Referring Provider Physician Assistant; Visit Provider Physician Assistant
DX: Z71.3 Dietary counseling and surveillance (principal); E66.01 Morbid (severe) obesity due to excess calories; Z68.43 Body mass index [BMI] 50.0-59.9, adult
CPT/HCPCS: 97803

== ENCOUNTER 2022-05-31 10:03 | Outpatient (RCR) | payer MEDICARE, MEDICAID, SELFPAY ==
[2022-05-30 00:11] VITALS: BMI 54.9
== END 2022-06-29 23:59 ==
LOC: NS 10:03
PROVIDERS: PCP Family Medicine; Referring Provider Physician Assistant; Visit Provider Physician Assistant
DX: Z71.3 Dietary counseling and surveillance (principal); E66.01 Morbid (severe) obesity due to excess calories; Z68.43 Body mass index [BMI] 50.0-59.9, adult
CPT/HCPCS: 97803

== ENCOUNTER 2023-12-25 10:52 | Emergency (ER) | payer MEDICARE, MEDICAID, SELFPAY ==
[2023-12-25 10:53] VITALS: BP 110/56; PULSE 82; RESP 16; TEMP 36.3; O2SAT 92
[2023-12-25 11:12] VITALS: BMI 57.6
--- NOTE | 2023-12-25 11:21 | ED.RN ---
pt states she was bending down to put on her shoes this morning when she became dizzy and fell straight backwards she did hit her head but denies losing consciousness. she states she was unaware of having injured herself at the time, however she went to the doctor afterwards and when she went to touch her head to show the doctor where she had hit it, it was covered in blood. her doctor sent her to the ER at that time d/t concern for concussion. pt alert and oriented now. she does endorse dizziness at this time. pt has a lac on the back of her head and is c/o of tenderness and headache 05/08. denies any other injuries.
--- NOTE | 2023-12-25 11:36 | CT_ITS ---
STUDY: CT BRAIN WITHOUT CONTRAST REASON FOR EXAM: Female, 68 years old. Head trauma due to a fall. Dizziness. RADIATION DOSAGE (If Supplied By Facility): CTDIvol = ( 44.99 ) mGy, DLP = ( 812.98 ) mGycm TECHNIQUE: Transaxial CT imaging of the brain was performed without administration of intravenous contrast material. Individualized dose optimization techniques were used for this CT. COMPARISON: No relevant priors. FINDINGS: Normal soft tissue structures. Normal calvarium. There is mild cerebral atrophy with widening of the extra-axial spaces and ventricular dilatation. There are areas of decreased attenuation within the white matter tracts of the supratentorial brain, consistent with microvascular disease changes. Normal basal ganglia and thalami. Normal brainstem. Normal cerebellum. Minimal thickening of the anterior cerebral falx suggestive of a tiny subdural hematoma within the cerebral falx. There are no findings of an acute ischemic infarction. Atherosclerotic calcification of the cavernous portions of the internal carotid arteries bilaterally. Normal visualized paranasal sinuses. Nasal septal deviation towards the right side of the midline. CT/Brain/Head without Contrast IMPRESSION: Chronic involutional changes of the brain. Findings suggestive of a tiny subdural hematoma within the anterior aspect of the cerebral falx. N.B. : The above Results were Read Back by Peña Woodall MD to Senthil Marquez MD, and understanding confirmed on 12/25/2023 12:13:44 (ET). Electronically Signed: Peña Woodall MD at 12:14 EST ,
--- NOTE | 2023-12-25 11:38 | EX.ED.GENINJ ---
HPI History of Present Illness Chief Complaint: Head Injury Informant: patient Onset/Context/Timing Onset: Today and Hours Mechanism/Context: Blunt Injury and Fall Current Severity: Mild Maximum Severity: Mild Associated Symptoms Associated Symptoms: Negative for Parasthesias, Weakness, Loss of function, Inability to ambulate, Loss of consciousness or Amnesia Narrative Narrative: 68-year-old female past medical history of diabetes, COPD and CVA. Says she is on aspirin no other blood thinners. She was reaching under her table to get something when she stood up she lost her balance fell backward struck her head she had the carpeted floor but still old carpet on top of cement. Has a laceration on posterior scalp. Mild headache. Denies other injuries. No numbness. No EXTR injuries to extremities. No numbness or weakness. This occurred about 3+ hours ago. She denies any vomiting. Tetanus Immunization: <5 years Prior similar symptoms: No Recent Illness/Hospitalization: No PFSH PFSH Medical History (Updated 12/25/23 @ 13:[address] Senthil Marquez MD) Abdominal pain, other specified site Acid reflux Asthma CVA (cerebral vascular accident) DDD (degenerative disc disease) Depression Diabetes mellitus Embolism Fibroids Fibromyalgia HTN (hypertension) Hypothyroid Migraines BEBETO (obstructive sleep apnea) Peptic ulcer Severe nausea Home Medications albuterol sulfate 90 mcg/actuation aerosol inhaler 2 puff inhalation Q4H PRN PRN Wheezing 05/30/19 [History Last Taken 06/03/19] amitriptyline 25 mg tablet 25 mg PO QHS 05/30/19 [History Last Taken Unknown] aspirin 81 mg tablet,delayed release 81 mg PO DAILY 05/30/19 [History Last Taken Unknown] atorvastatin 10 mg tablet 10 mg PO QHS 05/30/19 [History Last Taken Unknown] baclofen 10 mg tablet 10 mg PO BID 05/30/19 [History Last Taken Unknown] budesonide-formoterol HFA 160 mcg-4.5 mcg/actuation aerosol inhaler 2 puff inhalation BID 05/30/19 [History Last Taken Unknown] calcium carbonate 500 mg calcium (1,250 mg) tablet 500 mg PO DAILY 05/30/19 [History Last Taken Unknown] cetirizine 10 mg tablet 10 mg PO DAILY 05/30/19 [History Last Taken Unknown] cholecalciferol (vitamin D3) 50 mcg (2,000 unit) tablet 2,000 unit PO DAILY 05/30/19 [History Last Taken Unknown] diltiazem HCl 180 mg capsule,24 hr,extended release 180 mg PO DAILY 05/30/19 [History Last Taken Unknown] furosemide 40 mg tablet 40 mg PO DAILY 05/30/19 [History Last Taken Unknown] hydroxyzine HCl 50 mg tablet 50 mg PO TID PRN Anxiety 05/30/19 [History Last Taken Unknown] levothyroxine 300 mcg tablet 300 mcg PO DAILY 05/30/19 [History Last Taken Unknown] lisinopril 5 mg tablet 5 mg PO DAILY 05/30/19 [History Last Taken Unknown] meloxicam 15 mg tablet 15 mg PO DAILY 05/30/19 [History Last Taken Unknown] metformin 500 mg tablet 500 mg PO BID 05/30/19 [History Last Taken Unknown] montelukast 10 mg tablet 10 mg PO DAILY 05/30/19 [History Last Taken Unknown] multivitamin 1 ea PO DAILY 05/30/19 [History Last Taken Unknown] potassium chloride 20 mEq tablet,extended release 20 meq PO DAILY 05/30/19 [History Last Taken Unknown] topiramate 50 mg tablet 50 mg PO QHS 05/30/19 [History Last Taken Unknown] fluocinonide 0.05 % topical ointment 1 applic topical BID PRN outbreaks 12/05/19 [History Last Taken Unknown] ketoconazole 2 % shampoo (Nizoral) 1 applic topical 2XW 12/05/19 [History Last Taken Unknown] omeprazole 20 mg capsule,delayed release 20 mg PO DAILY reflux 12/05/19 [History Last Taken Unknown] sucralfate 1 gram tablet (Carafate) 1 g PO QACHS #120 tabs 12/05/19 [Rx Last Taken Unknown] prazosin 1 mg capsule ea PO 08/11/21 [History Last Taken Unknown] acetaminophen 325 mg capsule (Tylenol) 325 mg PO ONCE PRN pain #60 caps 11/17/21 [Rx Last Taken Unknown] diclofenac sodium 1 % topical gel (Voltaren Arthritis Pain) 4 g topical TID #100 grams 11/22/21 [Rx Last Taken Unknown] methylprednisolone 4 mg tablets in a dose pack (Medrol (Taras)) 4 mg PO DAILY #21 tabs 11/22/21 [Rx Last Taken Unknown] Allergy/AdvReac Type Severity Reaction Status Date / Time adhesive tape Allergy Rash Verified 05/04/22 13:57 fluticasone AdvReac Other Verified 05/04/22 13:57 [From Advair Diskus] salmeterol AdvReac Other Verified 05/04/22 13:57 [From Advair Diskus] tetracycline AdvReac Upset Verified 05/04/22 13:57 Stomach Surgical History H/O section S/P exploratory laparotomy S/P eye surgery S/P hysterectomy S/P laparoscopic cholecystectomy Social History Smoking Status: Current every day smoker tobacco type: e-cigarettes alcohol intake: current alcohol intake frequency: holidays/special occasions only ROS ROS ED ROS Narrative Denies recent illness. Mild headache Review of Systems ROS Unobtainable: Denies due to encephalopathy Constitutional Constitutional ED: Denies chills or fever(s) Eyes Eyes: Denies blurry vision ENT ENT ED: Denies ear pain Cardiovascular Cardiovascular: Denies chest pain Respiratory/Chest Respiratory/Chest: Denies cough or dyspnea Gastrointestinal Gastrointestinal: Denies abdominal pain Genitourinary Genitourinary ED: Denies dysuria or hematuria Musculoskeletal Musculoskeletal: Denies arthralgias Integumentary Denies abscess or Abrasions Neurologic Neurologic: Reports headache(s) Psychiatric Psychiatric: Denies anxiety Endocrine Endocrinology: Denies cold intolerance Hematologic/Lymphatic Hematologic/Lymphatic: Denies easy bleeding Allergic/Immunologic Allergic/Immunologic ED: Denies mouth swelling, tongue swelling or urticaria EXAM Physical Exam Narrative Exam Narrative: Well-appearing 68-year-old female. Vital signs stable afebrile. H EENT exam unremarkable. Pupils round reactive light. Patient has long thick hair. She has a scalp laceration posterior scalp but I cannot even find it at this time. Will clean this area off to get a visualization of it. Neck nontender. Lungs clear. Chest wall nontender. Ribs nontender. Heart regular rhythm rate about 80 no murmur. Abdomen soft nontender. Pelvic girdle intact. Moving all 4 extremities. 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 Dorsi plantarflexion intact. No deformity. No hip tenderness. No shortening or rotation. Back thoracic lumbar spine nontender. Neurologically she is awake alert. Answering questions and following commands. Const Vital Signs: 12/25/23 10:53 12/25/23 11:13 12/25/23 12:52 Temperature 97.4 F L Temperature Source Temporal Pulse Rate 82 85 Respiratory Rate 16 16 Respiratory Effort Normal Respiratory Depth Normal Respiratory Pattern Normal Blood Pressure 110/56 L 115/75 Blood Pressure Mean 74 88 Pulse Ox 92 99 Oxygen Delivery Method Room Air Room Air Room Air 12/25/23 13:15 Temperature Temperature Source Pulse Rate 80 Respiratory Rate 15 Respiratory Effort Respiratory Depth Respiratory Pattern Blood Pressure 139/81 H Blood Pressure Mean 100 Pulse Ox 97 Oxygen Delivery Method Room Air Positive well nourished and well developed; Negative for cachectic, contractures or unkempt General Appearance ED: well developed and NAD; Negative for unkempt, cachectic or contractures Nutritional Appearance: Negative for cachectic HEENT trauma; Negative for atraumatic Eyes PERRL and EOMs intact bilaterally Neck General: Negative for tenderness Chest Wall inspection of chest normal and palpation of chest normal Breast/Axilla Inspection: Negative for other Resp normal respiratory effort and clear to auscultation bilaterally Effort and Inspection: Negative for pain with movement Auscultation: Negative for rales, rhonchi, wheezes or diminished lung sounds Cardio regular rhythm, S1 normal heart sound, S2 normal heart sound and no murmurs Jugular Venous Distention: Negative for other Palpation: Negative for palpable S3 Rate: regular rate GI normal to inspection, nondistended, normoactive bowel sounds, non-tender, non-distended and no masses Inspection: Negative for abdominal distention Auscultation: normoactive bowel sounds Palpation: soft; Negative for tender Back/Spine normal to inspection and no thoracic nor lumbar tenderness General Back: Negative for CVA tenderness Thoracic Spine / Upper Back: Negative for thoracic spinal tenderness Lumbar Spine / Lower Back: Negative for straight leg raise negative bilaterally Extremity normal to inspection and full ROM General Extremety ED: Negative for deformity, edema or tenderness General Extremity: Negative for deformity or edema Neuro oriented x3, CN's II-XII intact bilaterally and moves all extremities [place] Coma Scale: document GCS findings Spontaneous Obeys Commands Oriented 15 Sensorium / Orientation: alert, oriented to person, oriented to place and oriented to time; Negative for orientation impaired, lethargic or stuporous Motor Exam: strength 5/5 throughout Psych mental status grossly normal and thought process normal Appearance: Negative for unkempt Attitude: No agitated Mood & Affect: Negative for depressed, anxious or tearful Skin no rashes or lesions noted and no wounds Skin Narrative: Posterior scalp laceration. General Skin Exam: Negative for other Rashes: No rashes noted Trauma: Negative for abrasion PROC Procedures Lacerations Posterior scalp laceration repair 1.5 inches:: Length: 1.5 in Depth: Sub Q Shape: Linear Prep: Shure-Clens Laceration repair: Irrigated, Lidocaine, Local and Skin sutures Number of Sutures/[place]: 3 Suture Information: Ethilon, Simple and 4-0 Comment: Posterior scalp laceration 1.5 cm in length. Cleaned with Shur-Clens. Washed and irrigated with saline. Explored. Involve the skin and subcu tissue. No bony step-off. No foreign body. Minimal bleeding. Locally anesthetized with lidocaine. Closed using 3 simple interrupted 4-0 Ethilon sutures. I chose suture over mitchell because the patient may need repeat CAT scan in 1 and because artifact. She tolerated it well. MDM MDM MDM Narrative Medical decision making narrative: 68-year-old stood up lost her balance fell backwards striking her head. Reportedly has a scalp laceration. Area be cleaned and all evaluated. Suture repair if needed. CAT scan of her brain due to the fall and head injury. Patient tells me her tetanus is up-to-date about 3 years ago. Repeat exam patient is doing well at 1:30 PM. She knows about the CAT scan finding. She will be transferred to [facility]. I very spoken with her ER physician Dr. Forbes who is excepted the patient in ER to ER transfer. I also sewed the patient's scalp closed. Using 3 simple interrupted 4-0 Ethilon sutures. Proper hemostasis and wound closure is obtained. History & Record Review Discussion w/independent historian: Patient Lab Data Attestation: I reviewed the patient's lab results. Radiography Diagnostic Testing: Clinical Impression(s) from Imaging Studies Brain CT 12/25/23 11:36 IMPRESSION: Chronic involutional changes of the brain. Findings suggestive of a tiny subdural hematoma within the anterior aspect of the cerebral falx. N.B. : The above Results were Read Back by Peña Woodall MD to Senthil Marquez MD, and understanding confirmed on 12/25/2023 12:13:44 (ET). Electronically Signed: Peña Woodall MD at 12:14 EST , ADDENDUM: 12/25/23 1221 IMPRESSION: Chronic involutional changes of the brain. Findings suggestive of a tiny subdural hematoma within the anterior aspect of the cerebral falx. N.B. : The above Results were Read Back by Peña Woodall MD to Senthil Marquez MD, and understanding confirmed on 12/25/2023 12:13:44 (ET). Electronically Signed: Peña Woodall MD at 12:14 EST , Discharge Plan Triage Chief Complaint: Head Injury ED Provider: Senthil Marquez Dx/Rx/DC Orders Clinical Impression: Acute head trauma, Subdural hematoma, History of stroke, History of diabetes mellitus, Fall, Laceration of scalp Prescriptions: No Action ketoconazole [Nizoral] 2 % shampoo 1 applic TOPICAL 2XW fluocinonide 0.05 % ointment 1 applic TOPICAL BID PRN (Reason: outbreaks) sucralfate [Carafate] 1 gram tablet 1 g PO QACHS Qty: 120 0RF prazosin 1 mg capsule PO methylprednisolone [Medrol (Taras)] 4 mg tablets,dose pack 4 mg PO DAILY Qty: 21 0RF Rx Instructions: one tablet daily by mouth as directed diclofenac sodium [Voltaren Arthritis Pain] 1 % gel 4 g topical TID Qty: 100 0RF Rx Instructions: apply to single knee multivitamin 1 EACH tablet 1 ea PO DAILY furosemide 40 MG tablet 40 mg PO DAILY metformin 500 MG tablet 500 mg PO BID diltiazem HCl 180 MG capsule,extended release 24 hr 180 mg PO DAILY cetirizine 10 MG tablet 10 mg PO DAILY atorvastatin 10 MG tablet 10 mg PO QHS levothyroxine 300 MCG tablet 300 mcg PO DAILY meloxicam 15 MG tablet 15 mg PO DAILY hydroxyzine HCl 50 MG tablet 50 mg PO TID PRN (Reason: Anxiety) aspirin 81 MG tablet,delayed release (DR/EC) 81 mg PO DAILY Patient Comments: stop 2 days preop amitriptyline 25 MG tablet 25 mg PO QHS calcium carbonate 500 MG tablet 500 mg PO DAILY baclofen 10 MG tablet 10 mg PO BID montelukast 10 MG tablet 10 mg PO DAILY lisinopril 5 MG tablet 5 mg PO DAILY albuterol sulfate 1 INHALER inhaler 2 puff inhalation Q4H PRN PRN (Reason: Wheezing) topiramate 50 MG tablet 50 mg PO QHS budesonide-formoterol 1 INHALER inhaler 2 puff inhalation BID cholecalciferol (vitamin D3) 2,000 UNIT tablet 2,000 unit PO DAILY potassium chloride 20 MEQ tablet extended release 20 meq PO DAILY omeprazole 20 mg capsule,delayed release(DR/EC) 20 mg PO DAILY acetaminophen [Tylenol] 325 mg capsule 325 mg PO ONCE PRN (Reason: pain) Qty: 60 0RF Primary Care Provider: Prince Gotti Referrals: Prince Gotti MD [Primary Care Provider] - Disposition Disposition: Acute Care Hospital
[2023-12-25] MEDS: Lidocaine 1% (20 ml mdv) 20 ML Vial 10 ML INFILT (11:47)
[2023-12-25 12:52] VITALS: BP 115/75; PULSE 85; RESP 16; O2SAT 99
[2023-12-25 13:15] VITALS: BP 139/81; PULSE 80; RESP 15; O2SAT 97
[2023-12-25 13:30] VITALS: BP 127/106; PULSE 82; RESP 16; O2SAT 97
--- NOTE | 2023-12-25 13:35 | CT_ITS ---
STUDY: CT CERVICAL SPINE WITHOUT CONTRAST REASON FOR EXAM: Female, 68 years old. head trauma RADIATION DOSAGE (If Supplied By Facility): CTDIvol = ( 22.15 ) mGy, DLP = ( 357.46 ) mGycm TECHNIQUE: High resolution transaxial imaging was performed without contrast material. Sagittal and coronal images were reconstructed. Individualized dose optimization techniques were used for this CT. COMPARISON: None FINDINGS: Normal craniovertebral junction. There are degenerative changes of the anterior atlantoaxial articulation. Normal odontoid process. There is straightening of the normal cervical lordosis. No visualized fracture or compression deformity. Multilevel degenerative changes are present. Mild central canal stenosis is present at C6-C7 due to a posterior disc osteophyte complex. Normal visualized soft tissue structures. CT/Spine Cervical without Contras IMPRESSION: Multilevel degenerative changes, as described above. Electronically Signed: Justin Gardiner MD at 14:12 EST ,
[2023-12-25 13:45] VITALS: BP 116/65; PULSE 84; RESP 19; O2SAT 98
[2023-12-25 14:15] VITALS: BP 123/96; PULSE 80; RESP 21; TEMP 36.6; O2SAT 94
== END 2023-12-25 14:36 | disposition short-term general hospital (02) ==
PROVIDERS: Emergency Provider Emergency Medicine; PCP Family Medicine; Visit Provider Emergency Medicine
DX: I62.00 Nontraumatic subdural hemorrhage, unspecified (principal); J44.9 Chronic obstructive pulmonary disease, unspecified; E11.9 Type 2 diabetes mellitus without complications; Z86.73 Personal history of transient ischemic attack (TIA), and cerebral infarction without residual deficits; S01.01XA Laceration without foreign body of scalp, initial encounter; Z79.82 Long term (current) use of aspirin; W18.39XA Other fall on same level, initial encounter; Y93.89 Activity, other specified; Z79.899 Other long term (current) drug therapy; E03.9 Hypothyroidism, unspecified; Z79.84 Long term (current) use of oral hypoglycemic drugs; F17.290 Nicotine dependence, other tobacco product, uncomplicated; Z90.49 Acquired absence of other specified parts of digestive tract
CPT/HCPCS: 12002; 70450; 72125; 99285; A4216

== ENCOUNTER 2024-01-03 14:34 | Emergency (ER) | payer MEDICARE, MEDICAID, SELFPAY ==
[2024-01-03 14:34] VITALS: BP 128/64; PULSE 75; RESP 13; TEMP 36.4; O2SAT 96; BMI 56.6
--- NOTE | 2024-01-03 15:14 | EX.ED.VIS.HA ---
HPI History of Present Illness Chief Complaint: Headache Informant: patient Onset/Context/Timing Onset: Days Context: Sudden Timing: Continuous Quality -Headache: Positive for Similar Prior Headaches Current Severity: Moderate Maximum Severity: Moderate Associated Symptoms/Injury Associated Symptoms: Negative for Fever, Nausea, Vomiting, Sore Throat, Sinus Pressure, Numbness, Tingling, Preceding Aura, Visual Changes, Blurred Vision, Photophobia or Visual Loss Injury - ARANA: Positive for Direct Trauma and Fall Narrative Narrative: 68-year-old female who actually saw and diagnosed last week with a subdural hematoma. She was transferred to [facility] where she stayed in the hospital about 4 days for a subdural but they did not have to do any brain surgery. Following updated the primary care physician to have her scalp laceration sutures removed. Told him she has been having a headache which she has had since the fall but maybe a little worse the last 2 days so he went to reevaluated here. She is on no blood thinners. She denies any new falls from the initial trauma. She denies any other complaints. Prior similar symptoms: Yes Recent Illness/Hospitalization: Yes PFSH PFS Medical History (Updated 01/03/24 @ 16:[address] Senthil Marquez MD) Abdominal pain, other specified site Acid reflux Asthma CVA (cerebral vascular accident) DDD (degenerative disc disease) Depression Diabetes mellitus Embolism Fibroids Fibromyalgia HTN (hypertension) Hypothyroid Migraines BEBETO (obstructive sleep apnea) Peptic ulcer Severe nausea Medical History no medical history no medical history Home Medications albuterol sulfate 90 mcg/actuation aerosol inhaler 2 puff inhalation Q4H PRN PRN Wheezing 05/30/19 [History Last Taken 06/03/19] amitriptyline 25 mg tablet 25 mg PO QHS 05/30/19 [History Last Taken Unknown] aspirin 81 mg tablet,delayed release 81 mg PO DAILY 05/30/19 [History Last Taken Unknown] atorvastatin 10 mg tablet 10 mg PO QHS 05/30/19 [History Last Taken Unknown] baclofen 10 mg tablet 10 mg PO BID 05/30/19 [History Last Taken Unknown] budesonide-formoterol HFA 160 mcg-4.5 mcg/actuation aerosol inhaler 2 puff inhalation BID 05/30/19 [History Last Taken Unknown] calcium carbonate 500 mg calcium (1,250 mg) tablet 500 mg PO DAILY 05/30/19 [History Last Taken Unknown] cetirizine 10 mg tablet 10 mg PO DAILY 05/30/19 [History Last Taken Unknown] cholecalciferol (vitamin D3) 50 mcg (2,000 unit) tablet 2,000 unit PO DAILY 05/30/19 [History Last Taken Unknown] diltiazem HCl 180 mg capsule,24 hr,extended release 180 mg PO DAILY 05/30/19 [History Last Taken Unknown] furosemide 40 mg tablet 40 mg PO DAILY 05/30/19 [History Last Taken Unknown] hydroxyzine HCl 50 mg tablet 50 mg PO TID PRN Anxiety 05/30/19 [History Last Taken Unknown] levothyroxine 300 mcg tablet 300 mcg PO DAILY 05/30/19 [History Last Taken Unknown] lisinopril 5 mg tablet 5 mg PO DAILY 05/30/19 [History Last Taken Unknown] meloxicam 15 mg tablet 15 mg PO DAILY 05/30/19 [History Last Taken Unknown] metformin 500 mg tablet 500 mg PO BID 05/30/19 [History Last Taken Unknown] montelukast 10 mg tablet 10 mg PO DAILY 05/30/19 [History Last Taken Unknown] multivitamin 1 ea PO DAILY 05/30/19 [History Last Taken Unknown] potassium chloride 20 mEq tablet,extended release 20 meq PO DAILY 05/30/19 [History Last Taken Unknown] topiramate 50 mg tablet 50 mg PO QHS 05/30/19 [History Last Taken Unknown] fluocinonide 0.05 % topical ointment 1 applic topical BID PRN outbreaks 12/05/19 [History Last Taken Unknown] ketoconazole 2 % shampoo (Nizoral) 1 applic topical 2XW 12/05/19 [History Last Taken Unknown] omeprazole 20 mg capsule,delayed release 20 mg PO DAILY reflux 12/05/19 [History Last Taken Unknown] sucralfate 1 gram tablet (Carafate) 1 g PO QACHS #120 tabs 12/05/19 [Rx Last Taken Unknown] prazosin 1 mg capsule ea PO 08/11/21 [History Last Taken Unknown] acetaminophen 325 mg capsule (Tylenol) 325 mg PO ONCE PRN pain #60 caps 11/17/21 [Rx Last Taken Unknown] diclofenac sodium 1 % topical gel (Voltaren Arthritis Pain) 4 g topical TID #100 grams 11/22/21 [Rx Last Taken Unknown] methylprednisolone 4 mg tablets in a dose pack (Medrol (Taras)) 4 mg PO DAILY #21 tabs 11/22/21 [Rx Last Taken Unknown] Allergy/AdvReac Type Severity Reaction Status Date / Time adhesive tape Allergy Rash Verified 01/03/24 14:38 fluticasone AdvReac Other Verified 01/03/24 14:38 [From Advair Diskus] salmeterol AdvReac Other Verified 01/03/24 14:38 [From Advair Diskus] tetracycline AdvReac Upset Verified 01/03/24 14:38 Stomach Surgical History H/O section S/P exploratory laparotomy S/P eye surgery S/P hysterectomy S/P laparoscopic cholecystectomy Social History Smoking Status: Current every day smoker tobacco type: e-cigarettes alcohol intake: current alcohol intake frequency: holidays/special occasions only ROS ROS ED ROS Narrative Headache. Review of Systems ROS Unobtainable: Denies due to encephalopathy Constitutional Constitutional ED: Denies chills or fever(s) Eyes Eyes: Denies blurry vision ENT ENT ED: Denies ear pain Cardiovascular Cardiovascular: Denies chest pain Respiratory/Chest Respiratory/Chest: Denies cough or dyspnea Gastrointestinal Gastrointestinal: Denies abdominal pain, nausea or vomiting Genitourinary Genitourinary ED: Denies dysuria or hematuria Musculoskeletal Musculoskeletal: Denies arthralgias or back pain Integumentary Denies abscess or Abrasions Neurologic Neurologic: Reports headache(s) Psychiatric Psychiatric: Denies anxiety or depression Endocrine Endocrinology: Denies polydipsia Hematologic/Lymphatic Hematologic/Lymphatic: Denies easy bleeding, easy bruising or lymphadenopathy Allergic/Immunologic Allergic/Immunologic ED: Denies mouth swelling, tongue swelling or urticaria EXAM Physical Exam Narrative Exam Narrative: Well-appearing 68-year-old female. Vital signs are stable afebrile. H EENT exam pupils round reactive light. No facial droop. Normal speech. Scalp dry and clean. Posterior scalp has a healing scalp laceration repair. Neck nontender. Lungs clear. Heart regular rhythm. No murmur. Chest wall nontender. Abdomen soft nontender. Pelvic girdle intact. Moving all 4 extremities. Normal strength. Normal sensation. Back nontender. Neurologically she is awake and alert. Answering questions and following commands. NIH score while sitting upright in bed is normal. No findings. Const Vital Signs: 01/03/24 14:34 Temperature 97.6 F L Temperature Source Oral Pulse Rate 75 Respiratory Rate 13 Blood Pressure 128/64 H Blood Pressure Mean 85 Pulse Ox 96 Oxygen Delivery Method Room Air Positive well nourished and well developed; Negative for cachectic, contractures or unkempt General Appearance ED: well developed and NAD; Negative for unkempt, cachectic, contractures, cyanotic or diaphoretic Nutritional Appearance: Negative for cachectic HEENT Reports normocephalic and moist mucous membranes HEENT Narrative: Well-healing posterior scalp laceration. Face and Sinus: Negative for sinus tenderness Eyes PERRL and EOMs intact bilaterally General Eye ED: Negative for pale conjunctiva or scleral icterus Neck no lymphadenopathy, supple, no meningeal signs and no JVD General: Negative for tenderness Resp normal respiratory effort Effort and Inspection: Negative for retractions Auscultation: Negative for rales, rhonchi or wheezes Cardio regular rate, regular rhythm, S1 normal heart sound, S2 normal heart sound and no murmurs Rate: Negative for bradycardia or tachycardic Rhythm: Negative for abnormal rhythm GI non-tender and non-distended Auscultation: normoactive bowel sounds Palpation: soft; Negative for firm or tender Back/Spine no CVA tenderness General Back: Negative for CVA tenderness Cervical Spine: Negative for cervical spine tenderness Thoracic Spine / Upper Back: Negative for thoracic spinal tenderness Lumbar Spine / Lower Back: Negative for lumbar spinal tenderness Extremity normal to inspection, full ROM and normal capillary refill General Extremety ED: Negative for edema or tenderness General Extremity: Negative for edema Neuro oriented x3 and CN's II-XII intact bilaterally Sensorium / Orientation: awake, alert, oriented to person, oriented to place and oriented to time; Negative for orientation impaired, lethargic or stuporous Coordination / Balance: [id number] test normal Speech: speech normal Motor Exam: strength 5/5 throughout Psych mental status grossly normal Appearance: Negative for unkempt Attitude: No agitated Mood & Affect: Negative for depressed, anxious or tearful Skin Lesions: no lesions Rashes: no rashes MDM MDM MDM Narrative Medical decision making narrative: 68-year-old with a headache who fell a week ago was diagnosed with a subdural and transferred to [facility]. Neurologic exam unremarkable. CAT scan of her brain will be obtained. Repeat exam patient is doing well at 4:[address] today was much improved from last week and the prior intracranial bleed had resolved. Patient be discharged home. Tylenol for headaches. I will remove her sutures prior to discharge. Radiography Diagnostic Testing: Clinical Impression(s) from Imaging Studies Brain CT 01/03/24 15:25 IMPRESSION: 1. Midline hyperdense anterior falx cerebri is most likely calcification rather than subdural hematoma. This is unchanged. 2. Chronic white matter ischemic changes in both cerebral hemispheres. 3. No interval change when compared to 12/25/2023. Electronically Signed: Jey Vargas MD at 15:51 EST , Discharge Plan Triage Chief Complaint: Headache ED Provider: Senthil Marquez Dx/Rx/DC Orders Clinical Impression: History of intracranial hemorrhage, Headache, History of diabetes mellitus Instructions: ED Headache Unspecified Prescriptions: No Action ketoconazole [Nizoral] 2 % shampoo 1 applic TOPICAL 2XW fluocinonide 0.05 % ointment 1 applic TOPICAL BID PRN (Reason: outbreaks) sucralfate [Carafate] 1 gram tablet 1 g PO QACHS Qty: 120 0RF prazosin 1 mg capsule PO methylprednisolone [Medrol (Taras)] 4 mg tablets,dose pack 4 mg PO DAILY Qty: 21 0RF Rx Instructions: one tablet daily by mouth as directed diclofenac sodium [Voltaren Arthritis Pain] 1 % gel 4 g topical TID Qty: 100 0RF Rx Instructions: apply to single knee multivitamin 1 EACH tablet 1 ea PO DAILY furosemide 40 MG tablet 40 mg PO DAILY metformin 500 MG tablet 500 mg PO BID diltiazem HCl 180 MG capsule,extended release 24 hr 180 mg PO DAILY cetirizine 10 MG tablet 10 mg PO DAILY atorvastatin 10 MG tablet 10 mg PO QHS levothyroxine 300 MCG tablet 300 mcg PO DAILY meloxicam 15 MG tablet 15 mg PO DAILY hydroxyzine HCl 50 MG tablet 50 mg PO TID PRN (Reason: Anxiety) aspirin 81 MG tablet,delayed release (DR/EC) 81 mg PO DAILY Patient Comments: stop 2 days preop amitriptyline 25 MG tablet 25 mg PO QHS calcium carbonate 500 MG tablet 500 mg PO DAILY baclofen 10 MG tablet 10 mg PO BID montelukast 10 MG tablet 10 mg PO DAILY lisinopril 5 MG tablet 5 mg PO DAILY albuterol sulfate 1 INHALER inhaler 2 puff inhalation Q4H PRN PRN (Reason: Wheezing) topiramate 50 MG tablet 50 mg PO QHS budesonide-formoterol 1 INHALER inhaler 2 puff inhalation BID cholecalciferol (vitamin D3) 2,000 UNIT tablet 2,000 unit PO DAILY potassium chloride 20 MEQ tablet extended release 20 meq PO DAILY omeprazole 20 mg capsule,delayed release(DR/EC) 20 mg PO DAILY acetaminophen [Tylenol] 325 mg capsule 325 mg PO ONCE PRN (Reason: pain) Qty: 60 0RF Primary Care Provider: Prince Gotti Referrals: Prince Gotti MD [Primary Care Provider] - As Needed Activity Restrictions/Additional Instructions: Tylenol for your headaches. Your CAT scan today look much better than the one last week. The blood that was in your brain has all resolved. Disposition Disposition: Home, Self Care
--- NOTE | 2024-01-03 15:25 | CT_ITS ---
EXAM: CT HEAD WITHOUT INTRAVENOUS CONTRAST CLINICAL INDICATION: s/p subdural one week ago TECHNIQUE: Multiple axial images were obtained of the head without intravenous contrast. This CT exam was performed using one or more of the following dose reduction techniques: automated exposure control, adjustment of the mA and/or kV according to patient size, and/or use of iterative reconstruction technique. RADIATION DOSE: CTDIvol = 44.99 mGy, DLP = 880.47 mGy-cm COMPARISON: 12/25/2023. FINDINGS: BRAIN AND EXTRA-AXIAL SPACES: Midline hyperdense anterior falx cerebri is most likely calcification rather than subdural hematoma. This is unchanged. Hypodensities in the white matter of both cerebral hemispheres are chronic white matter ischemic changes. Posterior fossa structures are unremarkable. Ventricles are appropriate for age. No hydrocephalus. Basal cisterns are patent. BONES/JOINTS: Unremarkable. No discrete lytic or blastic abnormalities. SINUSES: Unremarkable as visualized. Clear. MASTOID AIR CELLS: Unremarkable. Clear. ORBITS: Visualized globes, extraocular muscles, optic nerves and retrobulbar fat appear unremarkable. CT/Brain/Head without Contrast IMPRESSION: 1. Midline hyperdense anterior falx cerebri is most likely calcification rather than subdural hematoma. This is unchanged. 2. Chronic white matter ischemic changes in both cerebral hemispheres. 3. No interval change when compared to 12/25/2023. Electronically Signed: Jey Vargas MD at 15:51 EST ,
[2024-01-03 16:37] VITALS: BP 133/87; PULSE 64; RESP 17; TEMP 36.4; O2SAT 99
== END 2024-01-03 16:38 | disposition home or self-care (01) ==
PROVIDERS: Emergency Provider Emergency Medicine; PCP Family Medicine; Visit Provider Emergency Medicine
DX: R51.9 Headache, unspecified (principal); E11.9 Type 2 diabetes mellitus without complications; Z86.73 Personal history of transient ischemic attack (TIA), and cerebral infarction without residual deficits; I10 Essential (primary) hypertension; Z79.899 Other long term (current) drug therapy; J45.909 Unspecified asthma, uncomplicated; Z79.51 Long term (current) use of inhaled steroids; E03.9 Hypothyroidism, unspecified; Z79.84 Long term (current) use of oral hypoglycemic drugs; Z90.710 Acquired absence of both cervix and uterus; Z90.49 Acquired absence of other specified parts of digestive tract; F17.290 Nicotine dependence, other tobacco product, uncomplicated
CPT/HCPCS: 70450; 99282; A4216